=== PATIENT | female | born 1970 | race Caucasian/White ===

== ENCOUNTER 2017-03-11 22:51 | Emergency (ER) | payer MEDICAID ==
[~2017-03-11] VITALS: Ht 165.1 cm; Wt 76.8 kg
[2017-03-11 23:39] VITALS: BP 127/81
== END 2017-03-11 23:47 | disposition home or self-care (01) ==
LOC: EMS 22:53
DX: M26.621 Arthralgia of right temporomandibular joint (principal); H92.01 Otalgia, right ear
CPT/HCPCS: 99282

== ENCOUNTER 2017-05-24 13:20 | Emergency (ER) | payer MEDICAID ==
[~2017-05-24] VITALS: Ht 162.6 cm; Wt 76.0 kg
[2017-05-24 13:28] VITALS: BP 114/62
== END 2017-05-24 14:59 | disposition left against medical advice (07) ==
LOC: EMS 13:22
DX: M54.5 Low back pain (principal); Z53.21 Procedure and treatment not carried out due to patient leaving prior to being seen by health care provider

== ENCOUNTER 2017-06-14 23:57 | Emergency (ER) | payer MEDICAID ==
[~2017-06-14] VITALS: Ht 162.6 cm; Wt 80.5 kg
[2017-06-15] MEDS ORDERED: IBUPROFEN 600 MG TABLET PO ONE (03:45)
[2017-06-15] MEDS ORDERED: GuaiFENesin/D-METHORPHAN [SUGAR-FREE] 200-20MG/10 ML SYRUP UDCUP PO ONE (03:45)
[2017-06-15 03:46] VITALS: BP 128/70
== END 2017-06-15 03:49 | disposition home or self-care (01) ==
LOC: EMS 23:58
DX: J02.8 Acute pharyngitis due to other specified organisms (principal); B97.89 Other viral agents as the cause of diseases classified elsewhere; J06.9 Acute upper respiratory infection, unspecified; R51 Headache
CPT/HCPCS: 99283

== ENCOUNTER 2017-09-07 09:07 | Emergency (ER) | payer MEDICAID ==
[~2017-09-07] VITALS: Ht 157.5 cm; Wt 72.7 kg
[2017-09-07 09:23] LABS: BASOPHILS # (AUTO) 0.04 K/uL (0.00-0.20); BASOPHILS % (AUTO) 0.5 % (0.0-2.0); EOSINOPHILS % (AUTO) 13.76 % (1.0-6.0); HEMATOCRIT 36.2 % (36-46); HEMOGLOBIN 11.9 g/dL (12.0-16.0); LYMPHOCYTES # (AUTO) 1.8 K/uL (1.0-4.8); LYMPHOCYTES % (AUTO) 22.5 % (22.0-44.0); MEAN CORPUSCULAR HGB CONC 32.9 G/dL (31.0-37.0); MEAN CORPUSCULAR VOLUME 85 fL (80-100); MONOCYTES # (AUTO) 0.7 K/uL (0.1-1.0); MONOCYTES % (AUTO) 8.1 % (2.0-9.0); NEUTROPHILS # (AUTO) 4.4 K/uL (1.8-7.7); NEUTROPHILS % (AUTO) 55.1 % (40.0-70.0); PLATELET COUNT (AUTO) 318 K/uL (150-450); RED BLOOD CELL COUNT(AUTO) 4.26 MIL/uL (4.00-5.20); RED CELL DISTRIBUTION WIDTH 14.7 % (11.5-14.5)
[2017-09-07 09:39] LABS: ANION GAP 5 mmol/L (8-16); CALCIUM, TOTAL 8.4 mg/dL (8.8-10.5); CARBON DIOXIDE 28 mmol/L (22-29); CHLORIDE 103 mmol/L (98-107); CREATININE 0.75 mg/dL (0.60-1.30); GLOMERULAR FILTR. RATE CALC > 60 mL/min (>60); GLUCOSE,RANDOM 105 mg/dL (70-110); POTASSIUM 3.9 mmol/L (3.5-5.1); SODIUM SERUM 136 mmol/L (136-145); UREA NITROGEN, BLOOD 11 mg/dL (7-18)
[2017-09-07 09:45] LABS: ALANINE AMINOTRANSFERASE 27 U/L (12-78); ALBUMIN 3.5 g/dL (3.4-5.0); ALKALINE PHOSPHATASE 63 U/L (46-116); AMYLASE 38 U/L (25-115); ASPARTATE AMINOTRANSFERASE 16 U/L (15-37); BILIRUBIN,TOTAL 0.2 mg/dL (0.1-1.0); LIPASE 90 U/L (73-393); TOTAL PROTEIN, SERUM 7.5 g/dL (6.4-8.2)
[2017-09-07 10:51] LABS: APPEARANCE,URINE CLEAR (CLEAR); BILIRUBIN,URINE NEGATIVE (NEGATIVE); GLUCOSE, URINE (UA) NEGATIVE (NEGATIVE); KETONES,URINE NEGATIVE (NEGATIVE); LEUKOCYTE ESTERASE ,URINE NEGATIVE (NEGATIVE); NITRATE,URINE NEGATIVE (NEGATIVE); OCCULT BLOOD,URINE NEGATIVE (NEGATIVE); PH,URINE 6.5 (5.0-8.0); PROTEIN,URINE NEGATIVE (NEGATIVE); UROBILINOGEN,URINE 0.2 mg/dL (<=1.0)
[2017-09-07] MEDS ORDERED: KETOROLAC TROMETHAMINE 60 MG/2 ML VIAL IM ONE (11:15)
[2017-09-07 13:12] VITALS: BP 127/83
== END 2017-09-07 13:32 | disposition home or self-care (01) ==
LOC: EMS 09:08
DX: N92.4 Excessive bleeding in the premenopausal period (principal)
CPT/HCPCS: 36415; 76856; 80053; 81003; 82150; 83690; 84703; 85025; 96372; 99285; J1885

== ENCOUNTER 2018-01-19 21:48 | Inpatient (IN) | payer MEDICAID ==
[~2018-01-19] VITALS: Ht 165.1 cm; Wt 79.1 kg
[2018-01-19 22:46] LABS: BASOPHILS % (AUTO) 0.4 % (0.0-2.0); HEMATOCRIT 35.5 % (36-46); HEMOGLOBIN 11.8 g/dL (12.0-16.0); LYMPHOCYTES # (AUTO) 1.4 K/uL (1.0-4.8); LYMPHOCYTES % (AUTO) 9.9 % (22.0-44.0); MEAN CORPUSCULAR HEMOGLOBIN 27.1 pg (26.0-34.0); MEAN CORPUSCULAR HGB CONC 33.2 G/dL (31.0-37.0); MEAN CORPUSCULAR VOLUME 82 fL (80-100); MONOCYTES # (AUTO) 0.8 K/uL (0.1-1.0); MONOCYTES % (AUTO) 5.7 % (2.0-9.0); NEUTROPHILS # (AUTO) 11.7 K/uL (1.8-7.7); PLATELET COUNT (AUTO) 315 K/uL (150-450); RED BLOOD CELL COUNT(AUTO) 4.34 MIL/uL (4.00-5.20); RED CELL DISTRIBUTION WIDTH 14.9 % (11.5-14.5)
[2018-01-19 22:47] LABS: APPEARANCE,URINE CLOUDY (CLEAR); BILIRUBIN,URINE NEGATIVE (NEGATIVE); GLUCOSE, URINE (UA) NEGATIVE (NEGATIVE); KETONES,URINE NEGATIVE (NEGATIVE); LEUKOCYTE ESTERASE ,URINE NEGATIVE (NEGATIVE); NITRATE,URINE NEGATIVE (NEGATIVE); OCCULT BLOOD,URINE NEGATIVE (NEGATIVE); PROTEIN,URINE NEGATIVE (NEGATIVE); UROBILINOGEN,URINE 0.2 mg/dL (<=1.0)
[2018-01-19 22:58] LABS: ANION GAP 8 mmol/L (8-16); CALCIUM, TOTAL 8.4 mg/dL (8.8-10.5); CARBON DIOXIDE 28 mmol/L (22-29); CHLORIDE 102 mmol/L (98-107); CREATININE 0.96 mg/dL (0.60-1.30); GLOMERULAR FILTR. RATE CALC > 60 mL/min (>60); GLUCOSE,RANDOM 143 mg/dL (70-110); POTASSIUM 3.8 mmol/L (3.5-5.1); SODIUM SERUM 138 mmol/L (136-145); UREA NITROGEN, BLOOD 13 mg/dL (7-18)
[2018-01-19 23:04] LABS: ALANINE AMINOTRANSFERASE 34 U/L (12-78); ALKALINE PHOSPHATASE 73 U/L (46-116); ASPARTATE AMINOTRANSFERASE 17 U/L (15-37); BILIRUBIN,TOTAL 0.2 mg/dL (0.1-1.0); LIPASE 54 U/L (73-393)
[2018-01-20] MEDS ORDERED: MORPHINE SULFATE 4 MG/ML SYRINGE IVP ONE ×2 (00:45→03:30)
[2018-01-20] MEDS ORDERED: KETOROLAC TROMETHAMINE 30 MG/ML VIAL IVP ONE (00:45)
[2018-01-20] MEDS ORDERED: ONDANSETRON HCL 4 MG/2 ML VIAL IVP ONE (00:45)
[2018-01-20] MEDS ORDERED: SODIUM CHLORIDE 0.9% 1,000 ML IV ONE ×2 (00:45→05:54)
[2018-01-20] MEDS ORDERED: AMPICILLIN SODIUM/SULBACTAM NA 1.5 GM/VIAL IM ONE (02:00)
[2018-01-20] MEDS ORDERED: CefoTEtan DISOD 2 GM/DEXTROSE 50 ML IV ONE (02:15)
[2018-01-20] MEDS ORDERED: ONDANSETRON HCL 4 MG/2 ML VIAL IVP PRN ×2 (02:30→10:15)
[2018-01-20] MEDS ORDERED: ACETAMINOPHEN 325 MG TABLET PO PRN ×2 (02:30→10:15)
[2018-01-20] MEDS ORDERED: 0.9% SODIUM CHLORIDE 10 ML SYRINGE IVP PRN (02:30)
[2018-01-20 05:00] VITALS: BP 125/65
[2018-01-20] MEDS ORDERED: GUM MASTIC/STORAX/MSAL/ALCOHOL LIQUID 0.67 ML VIAL TP ONE (05:54)
[2018-01-20] MEDS ORDERED: BUPIVACAINE HCL/PF 0.5% 30 ML VIAL ONE (05:54)
[2018-01-20] MEDS ORDERED: RINGERS SOLUTION,LACTATED 1,000 ML IV ONE (05:54)
[2018-01-20] MEDS ORDERED: BUPIVACAINE 0.25%/EPI 1:200,000/PF 10 ML VIAL INJ ONE (06:53)
[2018-01-20] MEDS ORDERED: MORPHINE SULFATE 4 MG/ML SYRINGE IVP PRN ×2 (07:00→10:15)
[2018-01-20] MEDS ORDERED: HYDROCODONE/ACETAMINOPHEN 5-325 MG TABLET PO PRN (07:00)
[2018-01-20 08:20] VITALS: BP 107/70
[2018-01-20] MEDS: PIPERACILLIN/TAZO 3.375 GM/D5W 50 ML IV SCH ×2 (10:09→17:14)
[2018-01-20] MEDS ORDERED: MAGNESIUM HYDROXIDE SUSPENSION 30 ML UDCUP PO PRN (10:15)
[2018-01-20] MEDS ORDERED: ZOLPIDEM TARTRATE 5 MG TABLET PO PRN (10:15)
[2018-01-20] MEDS ORDERED: BISACODYL 10 MG RECTAL RECTAL SUPPOSITORY PR PRN (10:15)
[2018-01-20] MEDS ORDERED: SODIUM CHLORIDE 0.9% 500 ML IV ONE (10:18)
[2018-01-20] MEDS: CIPROFLOXACIN 400 MG/D5% WATER 200 ML IV SCH ×2 (10:45→22:49)
[2018-01-20 12:35] VITALS: BP 107/67
[2018-01-20] MEDS: MetroNIDAZOLE 500 MG/NACL 100 ML IV SCH ×2 (13:00→19:03)
[2018-01-20 16:25] VITALS: BP 92/51
[2018-01-20] MEDS: HEPARIN SODIUM,PORCINE 5,000 UNITS/ML VIAL SQ SCH (17:14)
[2018-01-20 20:22] VITALS: BP 118/72
[2018-01-20] MEDS: DOCUSATE SODIUM 100 MG CAPSULE PO SCH (20:26)
[2018-01-20] MEDS: HYDROCODONE/ACETAMINOPHEN 5-325 MG TABLET PO PRN (20:26)
[2018-01-21] MEDS: HEPARIN SODIUM,PORCINE 5,000 UNITS/ML VIAL SQ SCH ×2 (00:15→08:22)
[2018-01-21] MEDS: PIPERACILLIN/TAZO 3.375 GM/D5W 50 ML IV SCH ×2 (00:15→08:21)
[2018-01-21 00:44] VITALS: BP 115/58
[2018-01-21] MEDS: MetroNIDAZOLE 500 MG/NACL 100 ML IV SCH ×2 (03:01→11:14)
[2018-01-21 04:58] VITALS: BP 118/79
[2018-01-21] MEDS: HYDROCODONE/ACETAMINOPHEN 5-325 MG TABLET PO PRN (05:12)
[2018-01-21] MEDS ORDERED: MIDAZOLAM HCL 2 MG/2 ML VIAL IVP ONE (05:33)
[2018-01-21] MEDS ORDERED: FentaNYL CITRATE-PF 100 MCG/2 ML VIAL IVP ONE (05:33)
[2018-01-21] MEDS ORDERED: SUCCINYLCHOLINE CHLORIDE 20 MG/ML 10 ML VIAL IVP ONE (05:55)
[2018-01-21] MEDS ORDERED: PROPOFOL 1% 20 ML VIAL IVP ONE (05:55)
[2018-01-21] MEDS ORDERED: ROCURONIUM BROMIDE 10 MG/ML 5 ML VIAL IVP ONE (05:55)
[2018-01-21] MEDS ORDERED: LIDOCAINE HCL/PF 2% 5 ML VIAL IM ONE (05:55)
[2018-01-21] MEDS ORDERED: NEOSTIGMINE METHYLSULFATE 1 MG/ML 10 ML VIAL IVP ONE (05:55)
[2018-01-21] MEDS ORDERED: ONDANSETRON HCL 4 MG/2 ML VIAL IVP ONE (05:55)
[2018-01-21] MEDS ORDERED: DEXAMETHASONE SOD PHOS 4 MG/ML VIAL IVP ONE (05:55)
[2018-01-21] MEDS ORDERED: GLYCOPYRROLATE 0.2 MG/ML VIAL IM ONE (05:55)
[2018-01-21] MEDS ORDERED: ALBUTEROL SULFATE HFA 90 MCG/PUFF 8 GM INHALER IH ONE (05:55)
[2018-01-21] MEDS ORDERED: KETOROLAC TROMETHAMINE 60 MG/2 ML VIAL IM ONE (05:55)
[2018-01-21 06:50] LABS: BASOPHILS % (AUTO) 0.1 % (0.0-2.0); EOSINOPHILS % (AUTO) 1.4 % (1.0-6.0); HEMATOCRIT 33.4 % (36-46); HEMOGLOBIN 11.6 g/dL (12.0-16.0); LYMPHOCYTES # (AUTO) 2.3 K/uL (1.0-4.8); LYMPHOCYTES % (AUTO) 24.6 % (22.0-44.0); MEAN CORPUSCULAR HGB CONC 34.7 G/dL (31.0-37.0); MEAN CORPUSCULAR VOLUME 81 fL (80-100); MONOCYTES # (AUTO) 0.7 K/uL (0.1-1.0); NEUTROPHILS # (AUTO) 6.4 K/uL (1.8-7.7); NEUTROPHILS % (AUTO) 66.9 % (40.0-70.0); PLATELET COUNT (AUTO) 291 K/uL (150-450); RED BLOOD CELL COUNT(AUTO) 4.13 MIL/uL (4.00-5.20); RED CELL DISTRIBUTION WIDTH 14.8 % (11.5-14.5)
[2018-01-21 06:55] LABS: ANION GAP 8 mmol/L (8-16); CALCIUM, TOTAL 8.5 mg/dL (8.8-10.5); CARBON DIOXIDE 28 mmol/L (22-29); CHLORIDE 107 mmol/L (98-107); CREATININE 0.94 mg/dL (0.60-1.30); GLOMERULAR FILTR. RATE CALC > 60 mL/min (>60); GLUCOSE,RANDOM 107 mg/dL (70-110); POTASSIUM 3.4 mmol/L (3.5-5.1); SODIUM SERUM 143 mmol/L (136-145); UREA NITROGEN, BLOOD 14 mg/dL (7-18)
[2018-01-21] MEDS ORDERED: POTASSIUM CHLORIDE 20 MEQ ER TABLET PO ONE (08:00)
[2018-01-21 08:17] VITALS: BP 111/65
[2018-01-21] MEDS: DOCUSATE SODIUM 100 MG CAPSULE PO SCH (08:22)
[2018-01-21] MEDS ORDERED: PANTOPRAZOLE SODIUM 40 MG DR TABLET PO SCH (09:00)
[2018-01-21 11:44] VITALS: BP 114/68
[2018-01-21] MEDS: CIPROFLOXACIN 400 MG/D5% WATER 200 ML IV SCH (13:02)
[2018-01-21] MEDS ORDERED: DSS100 PO (14:31)
[2018-01-21] MEDS ORDERED: HYDR-309 PO ×2 (14:33→14:35)
== END 2018-01-21 16:00 | disposition home or self-care (01) | DRG 710 ==
LOC: EMS 21:48 → 6N 01-20 04:04
PROVIDERS: ADMIT Internal Medicine; ATTEND Internal Medicine
PROC: 0DTJ4ZZ Resection of Appendix, Percutaneous Endoscopic Approach (ICD-10-PCS; principal; 2018-01-20 06:00)
DX: A41.9 Sepsis, unspecified organism (principal); K35.80 Unspecified acute appendicitis; D64.9 Anemia, unspecified
CPT/HCPCS: 74176; 87081; 88304; 96361; 96365; 96375; 99285; J0330; J0744; J1100; J1644; J1885; J2250; J2270; J2405; J2543; J2704; J3010; J3490; J3535; J7030; J7040; J7120

== ENCOUNTER 2018-05-09 21:46 | Emergency (ER) | payer MEDICAID ==
[~2018-05-09] VITALS: Ht 165.1 cm; Wt 80.0 kg
[2018-05-09] MEDS ORDERED: IBUP-2070 PO (22:17)
[2018-05-09] MEDS ORDERED: ACET1TAB12 PO (22:17)
[2018-05-09] MEDS ORDERED: KETOROLAC TROMETHAMINE 30 MG/ML VIAL IM ONE (22:30)
[2018-05-09] MEDS ORDERED: DEXAMETHASONE SOD PHOS 4 MG/ML 5 ML VIAL IM ONE (22:30)
[2018-05-09 22:57] VITALS: BP 131/79
== END 2018-05-09 23:29 | disposition home or self-care (01) ==
LOC: EMS 21:47
DX: H69.82 Other specified disorders of Eustachian tube, left ear (principal); Z90.49 Acquired absence of other specified parts of digestive tract; Z79.1 Long term (current) use of non-steroidal anti-inflammatories (NSAID)
CPT/HCPCS: 96372; 99284; J1100; J1885

== ENCOUNTER 2018-12-05 15:11 | Emergency (ER) | payer MEDICAID ==
[~2018-12-05] VITALS: Ht 162.6 cm; Wt 86.4 kg
[~2018-12-05 15:11] MED LIST: ACET1TAB12 PO; IBUP-2070 PO
[2018-12-05] MEDS ORDERED: AZITHROMYCIN 250 MG TABLET PO ONE (16:15)
[2018-12-05] MEDS ORDERED: KETOROLAC TROMETHAMINE 60 MG/2 ML VIAL IM ONE (16:15)
[2018-12-05 17:17] VITALS: BP 128/86
== END 2018-12-05 17:18 | disposition home or self-care (01) ==
LOC: EMS 15:14
DX: J02.9 Acute pharyngitis, unspecified (principal); H66.91 Otitis media, unspecified, right ear; Z90.49 Acquired absence of other specified parts of digestive tract
CPT/HCPCS: 96372; 99283; J1885

== ENCOUNTER 2019-05-29 23:38 | Emergency (ER) | payer MEDICAID ==
[~2019-05-29] VITALS: Ht 165.1 cm; Wt 80.0 kg
[2019-05-30 04:33] VITALS: BP 133/65
== END 2019-05-30 04:54 | disposition left against medical advice (07) ==
LOC: EMS 23:39
DX: H92.02 Otalgia, left ear (principal); J02.9 Acute pharyngitis, unspecified; Z53.21 Procedure and treatment not carried out due to patient leaving prior to being seen by health care provider

== ENCOUNTER 2019-05-30 05:07 | Emergency (ER) | payer MEDICAID ==
[~2019-05-30] VITALS: Ht 165.1 cm; Wt 80.0 kg
[2019-05-30 05:09] VITALS: BP 131/92
== END 2019-05-30 07:15 | disposition left against medical advice (07) ==
LOC: EMS 05:07
DX: R07.0 Pain in throat (principal); Z53.21 Procedure and treatment not carried out due to patient leaving prior to being seen by health care provider
CPT/HCPCS: 87430

== ENCOUNTER 2019-05-30 13:25 | Emergency (ER) | payer MEDICAID ==
[~2019-05-30] VITALS: Ht 165.1 cm; Wt 80.0 kg
[2019-05-30 15:37] VITALS: BP 141/72
== END 2019-05-30 15:39 | disposition home or self-care (01) ==
LOC: EMS 13:28
DX: J02.8 Acute pharyngitis due to other specified organisms (principal); B97.89 Other viral agents as the cause of diseases classified elsewhere; Z90.49 Acquired absence of other specified parts of digestive tract

== ENCOUNTER 2021-03-02 20:24 | Emergency (ER) | payer MEDICAID, OTHER ==
[~2021-03-02] VITALS: Ht 165.1 cm; Wt 80.0 kg
[2021-03-02] MEDS ORDERED: MAALOX/LIDOCAINE/NYSTATIN SUSP 5 ML ORAL.SYG MM ONE (21:00)
[2021-03-02] MEDS ORDERED: DEXAMETHASONE 4 MG TABLET PO ONE (21:00)
[2021-03-02 21:04] LABS: COVID AG,FIA SOURCE NASAL SWAB
[2021-03-02 21:25] VITALS: BP 132/78
[2021-03-02] MEDS ORDERED: ACETAMINOPHEN 500 MG TABLET PO ONE (23:00)
[2021-03-02] MEDS ORDERED: IBUPROFEN 100 MG/5 ML SUSPENSION UDCUP PO ONE (23:00)
[2021-03-02] MEDS ORDERED: IBUPROFEN 400 MG TABLET PO ONE (23:15)
== END 2021-03-02 23:29 | disposition home or self-care (01) ==
LOC: EMS 20:26
DX: B34.9 Viral infection, unspecified (principal); J40 Bronchitis, not specified as acute or chronic; J02.9 Acute pharyngitis, unspecified; Z20.822 Contact with and (suspected) exposure to COVID-19; Z90.89 Acquired absence of other organs
CPT/HCPCS: 71045; 87426; 99284; J8540

== ENCOUNTER 2021-03-11 22:17 | Emergency (ER) | payer OTHER ==
[~2021-03-11] VITALS: Ht 165.1 cm; Wt 79.5 kg
[2021-03-11] MEDS ORDERED: BENZONATATE 100 MG CAPSULE PO ONE (23:15)
[2021-03-11] MEDS ORDERED: ACETAMINOPHEN 500 MG TABLET PO ONE (23:15)
[2021-03-11 23:28] LABS: BASOPHILS % (AUTO) 0.9 % (0.0-2.0); HEMATOCRIT 35.4 % (36-46); HEMOGLOBIN 11.6 g/dL (12.0-16.0); LYMPHOCYTES # (AUTO) 1.1 K/uL (1.0-4.8); MEAN CORPUSCULAR HEMOGLOBIN 27.7 pg (26.0-34.0); MEAN CORPUSCULAR HGB CONC 32.8 G/dL (31.0-37.0); MEAN CORPUSCULAR VOLUME 85 fL (80-100); MONOCYTES # (AUTO) 0.5 K/uL (0.1-1.0); MONOCYTES % (AUTO) 11.6 % (2.0-9.0); NEUTROPHILS # (AUTO) 2.7 K/uL (1.8-7.7); NEUTROPHILS % (AUTO) 60.5 % (40.0-70.0); PLATELET COUNT (AUTO) 262 K/uL (150-450); RED BLOOD CELL COUNT(AUTO) 4.18 MIL/uL (4.00-5.20); RED CELL DISTRIBUTION WIDTH 14.7 % (11.5-14.5)
[2021-03-11 23:43] LABS: ANION GAP 10 mmol/L (8-16); CALCIUM, TOTAL 8.3 mg/dL (8.8-10.5); CARBON DIOXIDE 25 mmol/L (22-29); CHLORIDE 107 mmol/L (98-107); CREATININE 0.69 mg/dL (0.60-1.30); GLOMERULAR FILTR. RATE CALC > 60 mL/min (>60); GLUCOSE,RANDOM 125 mg/dL (70-110); INR 0.9 (0.9-1.1); POTASSIUM 3.5 mmol/L (3.5-5.1); PROTHROMBIN TIME 10.1 SEC (9.4-11.6); SODIUM SERUM 142 mmol/L (136-145); UREA NITROGEN, BLOOD 19 mg/dL (7-18)
[2021-03-11 23:46] LABS: ALANINE AMINOTRANSFERASE 40 U/L (12-78); ALBUMIN 3.2 g/dL (3.4-5.0); ALKALINE PHOSPHATASE 73 U/L (46-116); ASPARTATE AMINOTRANSFERASE 24 U/L (15-37); BILIRUBIN,TOTAL 0.2 mg/dL (0.1-1.0); TOTAL PROTEIN, SERUM 6.9 g/dL (6.4-8.2)
[2021-03-12 00:05] LABS: B-TYPE NATRIURETIC PEPTIDE 8 pg/mL (0-100)
[2021-03-12 00:20] LABS: CREATINE KINASE, TOTAL ONLY 113 U/L (26-192); HCG,QUANTITATIVE 2 mIU/mL (0-6)
[2021-03-12 00:23] LABS: COVID AG,FIA SOURCE NASOPHARYNGEAL
[2021-03-12 00:29] LABS: APPEARANCE,URINE CLEAR (CLEAR); BILIRUBIN,URINE NEGATIVE (NEGATIVE); GLUCOSE, URINE (UA) NEGATIVE (NEGATIVE); KETONES,URINE NEGATIVE (NEGATIVE); LEUKOCYTE ESTERASE ,URINE NEGATIVE (NEGATIVE); NITRATE,URINE NEGATIVE (NEGATIVE); OCCULT BLOOD,URINE NEGATIVE (NEGATIVE); PH,URINE 6.5 (5.0-8.0); PROTEIN,URINE NEGATIVE (NEGATIVE); UROBILINOGEN,URINE 0.2 mg/dL (<=1.0)
[2021-03-12 00:52] LABS: INFLUENZA TYPE A NEGATIVE FOR TYPE A (NEGATIVE); INFLUENZA TYPE B NEGATIVE FOR TYPE B (NEGATIVE)
[2021-03-12] MEDS ORDERED: DOXYCYCLINE HYCLATE 100 MG TABLET PO ONE (01:45)
[2021-03-12 02:00] VITALS: BP 117/65
== END 2021-03-12 02:37 | disposition home or self-care (01) ==
LOC: EMS 22:18
DX: J18.9 Pneumonia, unspecified organism (principal); Z20.822 Contact with and (suspected) exposure to COVID-19; Z90.89 Acquired absence of other organs
CPT/HCPCS: 71045; 80053; 81003; 82550; 83880; 84484; 84702; 85025; 85610; 85730; 87804; 93005; 99285; 36415-L1; 36415-TC

== ENCOUNTER 2023-12-22 10:43 | Emergency (ER) | payer OTHER ==
[~2023-12-22] VITALS: Ht 162.6 cm; Wt 81.8 kg
[2023-12-22 12:54] VITALS: BP 119/75; PULSE 84; RESP 16; TEMP 98
== END 2023-12-22 14:59 | disposition left against medical advice (07) ==
LOC: EMS 10:43
DX: R51.9 Headache, unspecified (principal); Z53.21 Procedure and treatment not carried out due to patient leaving prior to being seen by health care provider

== ENCOUNTER 2024-07-14 22:46 | Emergency (ER) | payer OTHER ==
[~2024-07-14] VITALS: Ht 165.1 cm; Wt 70.5 kg
[~2024-07-14 22:46] MED LIST changes: -ACET1TAB12 PO; +IBUP-1492 PO; -IBUP-2070 PO
[2024-07-14] MEDS: METOCLOPRAMIDE HCL 10 MG TABLET PO ONE (23:59)
[2024-07-14] MEDS: ACETAMINOPHEN 325 MG TABLET PO ONE (23:59)
[2024-07-14] MEDS: KETOROLAC TROMETHAMINE 30 MG/ML VIAL IM ONE (23:59)
[2024-07-15 00:55] LABS: COVID AG,FIA SOURCE NASAL SWAB
[2024-07-15 01:08] LABS: INFLUENZA TYPE A NEGATIVE FOR TYPE A (NEGATIVE); INFLUENZA TYPE B NEGATIVE FOR TYPE B (NEGATIVE); SARS-COV2 (COVID) ANTIGEN,FIA Negative (Negative)
[2024-07-15] MEDS ORDERED: METO5TAB95 PO (01:16)
[2024-07-15 01:43] VITALS: BP 116/69; PULSE 76; RESP 16; TEMP 97.3; O2SAT 96
== END 2024-07-15 01:56 | disposition home or self-care (01) ==
LOC: EMS 22:47
DX: G43.909 Migraine, unspecified, not intractable, without status migrainosus (principal); Z90.49 Acquired absence of other specified parts of digestive tract; Z20.822 Contact with and (suspected) exposure to COVID-19
CPT/HCPCS: 99283; 87426; 87804; 96372; J1885

== ENCOUNTER → 2024-10-15 | Emergency (ER) | payer OTHER ==
[~2024-10-15] VITALS: Ht 165.1 cm; Wt 72.7 kg
[~2024-10-15] MED LIST changes: +ACET-3385 PO; +AMOX-457 PO; +METO5TAB95 PO
[2024-10-15 01:01] VITALS: BP 129/96; PULSE 116; RESP 18; TEMP 97.7; O2SAT 100
[2024-10-15] MEDS: AMOX TR/POT CLAV 875 MG/125 MG TABLET PO ONE (01:55)
[2024-10-15] MEDS: KETOROLAC TROMETHAMINE 30 MG/ML VIAL IM ONE (01:55)
[2024-10-15 02:42] LABS: COVID AG,FIA SOURCE NASAL SWAB
[2024-10-15 02:53] LABS: RAPID GROUP A STREP NEGATIVE (NEGATIVE)
[2024-10-15 03:01] LABS: SARS-COV2 (COVID) ANTIGEN,FIA Negative (Negative)
[2024-10-15 03:07] LABS: INFLUENZA TYPE A NEGATIVE FOR TYPE A (NEGATIVE); INFLUENZA TYPE B NEGATIVE FOR TYPE B (NEGATIVE)
== END | disposition still patient (30) ==
LOC: EMS 00:52
DX: J02.9 Acute pharyngitis, unspecified (principal); H66.93 Otitis media, unspecified, bilateral; Z20.822 Contact with and (suspected) exposure to COVID-19
CPT/HCPCS: 99283; 87426; 87430; 87804; 96372; J1885